=== PATIENT | female | born 1980 | race Hispanic/Latino ===

== ENCOUNTER 2025-02-05 04:15 | Inpatient (IN) | payer OTHER ==
[2025-02-05] MEDS ORDERED: Sodium Chloride 0.9% 10 ML Syringe FLUSH PRN (05:08)
[2025-02-05] MEDS ORDERED: Lidocaine 1% 50 ML MDV INJECT PRN (05:08)
[2025-02-05] MEDS ORDERED: Nalbuphine 10 MG/1 ML Vial IVPUSH PRN (05:08)
[2025-02-05] MEDS ORDERED: Oxytocin/0.9 % Sodium Chloride 30 UNIT/500 ML BAG IV SCH (05:15)
[2025-02-05 05:36] LABS: BASOPHILS PERCENT AUTO 0.1 % (0.0-1.0); EOSINOPHILS ABSOLUTE AUTO 0.1 K/mm3 (0.0-0.4); EOSINOPHILS PERCENT AUTO 0.9 % (0.0-6.0); HEMATOCRIT 34.8 % (37.0-47.0); HEMOGLOBIN 12.1 gm/dl (12.0-16.0); IMMATURE GRAN ABSOLUTE AUTO 0.05 K/mm3 (0.00-0.05); IMMATURE GRAN PERCENT AUTO 0.6 % (0.0-0.4); LYMPHOCYTES ABSOLUTE AUTO 1.2 K/mm3 (1.0-4.8); LYMPHOCYTES PERCENT AUTO 13.1 % (24.0-44.0); MEAN CORPUSCULAR HEMOGLOBIN 32.4 pg (28.0-32.0); MEAN CORPUSCULAR HGB CONC 34.8 g/dl (32.0-36.0); MEAN CORPUSCULAR VOLUME 93.3 fl (83.0-99.0); MEAN PLATELET VOLUME 11.2 fl (9.4-12.3); MONOCYTES ABSOLUTE AUTO 0.5 K/mm3 (0.0-0.8); MONOCYTES PERCENT AUTO 5.7 % (0.0-8.0); NEUTROPHILS PERCENT AUTO 79.6 % (41.0-71.0); PLATELET COUNT,PLT 143 K/mm3 (150-400); RED BLOOD CELL COUNT 3.73 M/mm3 (4.10-5.30); WHITE BLOOD CELL COUNT,WBC 8.84 K/mm3 (3.9-11.3)
[2025-02-05] MEDS: Lactated Ringers 1,000 ML IV SCH (08:03)
[2025-02-05] MEDS: Oxytocin/0.9 % Sodium Chloride 30 UNIT/500 ML BAG IV SCH (08:03)
[2025-02-05] MEDS: Acetaminophen 325 MG Tab PO PRN (22:10)
[2025-02-05] MEDS ORDERED: diphenhydrAMINE 50 MG/ML SDV IVPUSH PRN (22:45)
[2025-02-05] MEDS ORDERED: ePHEDrine 50 MG/ML SDV IVPUSH PRN (22:45)
[2025-02-05] MEDS: Bupivacaine/fentaNYL/NS 100 ML Bag EPIDUR PRN (23:10)
[2025-02-06] MEDS ORDERED: Clindamycin Phosphate in D5W 600 MG in Premix Bag 1 BAG IV SCH (06:00)
[2025-02-06] MEDS: Clindamycin Phosphate in D5W 300 MG in Premix Bag 1 BAG IV SCH ×2 (06:16→14:46)
[2025-02-06] MEDS: Gentamicin 430 MG in Sodium Chloride 0.9% 100 ML IV ONE (06:56)
[2025-02-06] MEDS: Ondansetron 4 MG/2 ML SDV IVPUSH PRN (14:36)
[2025-02-06] MEDS: Hydrocortisone Acetate 25 MG Supp RECTAL SCH (17:01)
[2025-02-06] MEDS ORDERED: Acetaminophen 325 MG Tab PO PRN (18:30)
[2025-02-06] MEDS: Benzocaine/Menthol 20%-0.5% Spray 78 GM Cannister TOP PRN (21:22)
[2025-02-06] MEDS: Witch Hazel Medicated Pads 40/Jar TOP PRN (21:22)
[2025-02-07] MEDS: Ibuprofen 600 MG Tab PO SCH (00:15)
[2025-02-07] MEDS: Docusate Sodium 100 MG Cap PO PRN (08:59)
== END 2025-02-08 12:50 | disposition home or self-care (01) | DRG 805 ==
LOC: JD.OBCHECK 04:15 → JD.OB 04:24 → JD.OBCHECK 05:09 → OBSVTOIN 16:50 → JD.OB 02-06 17:34
PROVIDERS: ADMIT Obstetrics & Gynecology; ATTEND Obstetrics & Gynecology
PROC: 10E0XZZ Delivery of Products of Conception, External Approach (ICD-10-PCS; principal; 2025-02-06)
PROC: 0KQM0ZZ Repair Perineum Muscle, Open Approach (ICD-10-PCS; 2025-02-06)
PROC: 3E033VJ Introduction of Other Hormone into Peripheral Vein, Percutaneous Approach (ICD-10-PCS; 2025-02-06)
PROC: 10H07YZ Insertion of Other Device into Products of Conception, Via Natural or Artificial Opening (ICD-10-PCS; 2025-02-06)
DX: O42.02 Full-term premature rupture of membranes, onset of labor within 24 hours of rupture (principal); O41.1230 Chorioamnionitis, third trimester, not applicable or unspecified; Z37.0 Single live birth; O70.9 Perineal laceration during delivery, unspecified; Z3A.00 Weeks of gestation of pregnancy not specified
CPT/HCPCS: 36415; 51702; 59025; 85025; 86592; A9270-GY; J0736; J1580; J2405; J3490; J7120; J7999